=== PATIENT | female | born 1970 | race African-American/Black ===

== ENCOUNTER 2017-11-05 12:26 | Emergency (ER) | payer OTHER ==
[2017-11-05] MEDS: ONDANSETRON PF 4 MG/2 ML VIAL. IV (13:15)
[2017-11-05] MEDS ORDERED: MORPHINE SULFATE 4 MG/ML DISP.SYRIN. IV/SQ (13:15)
[2017-11-05 13:16] LABS: URINE HCG POC HCG NEGATIVE (Negative)
[2017-11-05 13:33] LABS: ADD MAN DIFF? NO
[2017-11-05 13:37] LABS: BASO % 1 % (0-3); EOS # 0.1 x10^3/uL (0.0-0.7); EOS % 2 % (0-3); HEMATOCRIT 30.7 % (36.0-47.0); LYMPH # 2.2 x10^3/uL (1.0-4.8); LYMPH % 32 % (24-48); MEAN CORPUSCULAR HEMOGLOBIN 27 pg (25-35); MEAN CORPUSCULAR HGB CONC 33 g/dL (31-37); MEAN CORPUSCULAR VOLUME 81 fL (79-100); MONO # 0.5 x10^3/uL (0.0-1.1); MONO % 8 % (0-9); NEUT # 3.9 x10^3uL (1.8-7.7); NEUT % 58 % (31-73); PLATELET COUNT 310 x10^3/uL (140-400); RED BLOOD COUNT 3.77 x10^6/uL (3.50-5.40); RED CELL DISTRIBUTION WIDTH 19.5 % (11.5-14.5); WHITE BLOOD COUNT 6.8 x10^3/uL (4.0-11.0)
[2017-11-05] MEDS: IV RINGERS,LACTATED 1000ML 1,000 ML IV (13:37)
[2017-11-05 13:44] LABS: INR 1.1 (0.8-1.1); PARTIAL THROMBOPLASTIN TIME 27 SEC (24-38); PROTHROMBIN TIME PATIENT 13.3 SEC (11.7-14.0)
[2017-11-05 13:51] LABS: BILIRUBIN,URINE NEGATIVE (NEG); CLARITY,URINE CLEAR; COLOR,URINE YELLOW; GLUCOSE,URINE NEGATIVE (NEG); NITRITE,URINE NEGATIVE (NEG); PROTEIN,URINE NEGATIVE (NEG-TRACE); UROBILINOGEN,URINE 0.2 mg/dL (0.2 mg/dL)
[2017-11-05 13:59] LABS: ANION GAP 7 (6-14); BLOOD UREA NITROGEN 17 mg/dL (7-20); CALCIUM 8.8 mg/dL (8.5-10.1); CARBON DIOXIDE 26 mmol/L (21-32); CHLORIDE 107 mmol/L (98-107); GFR 72.2; GLUCOSE 96 mg/dL (70-99); POTASSIUM 3.8 mmol/L (3.5-5.1); SODIUM 140 mmol/L (136-145)
[2017-11-05 14:00] LABS: BACTERIA,URINE MODERATE /HPF (0-FEW); RBC,URINE 0 /HPF (0-2); SQUAMOUS EPITHELIAL CELL,UR MANY /LPF
[2017-11-05 14:01] LABS: BARBITURATES NEG (NEG); BENZODIAZEPINES NEG (NEG); CANNABINOIDS NEG (NEG); COCAINE NEG (NEG); METHADONE NEG (NEG); OPIATES NEG (NEG); PHENCYCLIDINE NEG (NEG)
[2017-11-05 14:06] LABS: ALBUMIN 3.6 g/dL (3.4-5.0); ALK PHOS 68 U/L (46-116); ALT (SGPT) 22 U/L (14-59); AMPHETAMINE/METHAMPHETAMINE NEG (NEG); AST (SGOT) 18 U/L (15-37); CKMB MASS < 0.5 ng/mL (0.0-3.6); CREATINE KINASE 155 U/L (26-192); DIRECT BILIRUBIN 0.2 mg/dL (0.0-0.2); ETHANOL, URINE NEG (NEG); LIPASE 104 U/L (73-393); TOTAL BILIRUBIN 0.9 mg/dL (0.2-1.0); TOTAL PROTEIN 8.4 g/dL (6.4-8.2)
[2017-11-05 14:11] LABS: LACTIC ACID 1.2 mmol/L (0.4-2.0)
[2017-11-05] MEDS ORDERED: CONTRAST GIVEN MC (15:00)
[2017-11-05] MEDS: IOHEXOL 300 MG/ML 100ML VIAL. IV (15:03)
[2017-11-05] MEDS: KETOROLAC 30 MG/ML INJ. IV (15:34)
== END 2017-11-05 17:23 | disposition home or self-care (01) ==
LOC: ER 12:26
DX: R10.32 Left lower quadrant pain (principal); N83.202 Unspecified ovarian cyst, left side; Z98.51 Tubal ligation status
CPT/HCPCS: 36415; 72170; 74177; 76830; 76856; 80048; 80076; 80307; 81001; 81025; 82553; 83605; 83690; 85025; 85610; 85730; 87086; 96361; 96374; 99285-25; J1885; J7120; Q9967

== ENCOUNTER 2018-12-25 19:32 | Emergency (ER) | payer OTHER ==
[~2018-12-25] VITALS: Ht 157.5 cm; Wt 78.5 kg
[2018-12-25 21:31] VITALS: BP 132/76
[2018-12-25] MEDS ORDERED: BUTALB/APAP/CAFEIN 50/325/40MG TABLET. PO ONE (21:45)
[2018-12-25] MEDS ORDERED: BUTA1TAB23 PO (22:04)
--- NOTE | 2018-12-25 22:04 | PHYS DOC ---
Past Medical History Past Medical History: Anxiety, Hypothyroid Past Surgical History: Tubal ligation Alcohol Use: None Drug Use: None Adult General Chief Complaint Chief Complaint: DIZZY/LIGHT HEADED HPI HPI Patient is a 48 year old [f__sex] who presents with [] Review of Systems Review of Systems Constitutional: Denies fever or chills [] Eyes: Denies change in visual acuity, redness, or eye pain [] HENT: Denies nasal congestion or sore throat [] Respiratory: Denies cough or shortness of breath [] Cardiovascular: No additional information not addressed in HPI [] GI: Denies abdominal pain, nausea, vomiting, bloody stools or diarrhea [] : Denies dysuria or hematuria [] Musculoskeletal: Denies back pain or joint pain [] Integument: Denies rash or skin lesions [] Neurologic: Denies headache, focal weakness or sensory changes [] Endocrine: Denies polyuria or polydipsia [] All other systems were reviewed and found to be within normal limits, except as documented in this note. Current Medications Current Medications Current Medications Medications (Trade) Dose Ordered Sig/Hussain Start Time Stop Time Status Last Admin Dose Admin Acetaminophen/ Butalbital/ Caffeine (Fioricet) 1 tab 1X ONCE 12/25/18 21:45 12/25/18 21:46 DC 12/25/18 21:48 1 TAB Allergies Allergies Allergies Coded Allergies Type Severity Reaction Last Updated Verified No Known Drug Allergies 11/05/17 No Physical Exam Physical Exam Constitutional: Well developed, well nourished, no acute distress, non-toxic appearance. [] HENT: Normocephalic, atraumatic, bilateral external ears normal, oropharynx moist, no oral exudates, nose normal. [] Eyes: PERRLA, EOMI, conjunctiva normal, no discharge. [] Neck: Normal range of motion, no tenderness, supple, no stridor. [] Cardiovascular:Heart rate regular rhythm, no murmur [] Lungs & Thorax: Bilateral breath sounds clear to auscultation [] Abdomen: Bowel sounds normal, soft, no tenderness, no masses, no pulsatile masses. [] Skin: Warm, dry, no erythema, no rash. [] Back: No tenderness, no CVA tenderness. [] Extremities: No tenderness, no cyanosis, no clubbing, ROM intact, no edema. [] Neurologic: Alert and oriented X 3, normal motor function, normal sensory function, no focal deficits noted. [] Psychologic: Affect normal, judgement normal, mood normal. [] Current Patient Data Vital Signs Vital Signs Date Time Temp Pulse Resp B/P (MAP) Pulse Ox O2 Delivery O2 Flow Rate FiO2 12/25/18 21:31 54 18 99 12/25/18 19:35 98.1 168/87 (114) Room Air 98.1 EKG EKG [] Radiology/Procedures Radiology/Procedures [] Course & Med Decision Making Course & Med Decision Making Pertinent Labs and Imaging studies reviewed. (See chart for details) [] Dragon Disclaimer Dragon Disclaimer This electronic medical record was generated, in whole or in part, using a voice recognition dictation system. Departure Departure Impression: Primary Impression: Dizziness Additional Impression: Medication adverse effect Disposition: 01 HOME, SELF-CARE Condition: STABLE Referrals: Bebe MOSHER MD (PCP) Patient Instructions: Dizziness, [id number], Drug Reaction, GI Intolerance Scripts Butalb/Acetaminophen/Caffeine ([id number] 50-325-40) 1 Each Tablet 1 EACH PO Q6HRS PRN for HEADACHE, #14 TAB Prov: AUTUMN SILVEIRA DO 12/25/18 Problem Qualifiers Additional Impression: Medication adverse effect Encounter type: initial encounter Qualified Codes: T50.905A - Adverse effect of unspecified drugs, medicaments and biological substances, initial encounter AUTUMN SILVEIRA DO Dec 25, 2018 22:04
== END 2018-12-25 22:10 | disposition home or self-care (01) ==
LOC: ER 19:32
DX: R42 Dizziness and giddiness (principal); T38.0X5A Adverse effect of glucocorticoids and synthetic analogues, initial encounter; E03.9 Hypothyroidism, unspecified; F41.9 Anxiety disorder, unspecified; Y92.89 Other specified places as the place of occurrence of the external cause
CPT/HCPCS: 99283

== ENCOUNTER 2019-04-06 06:53 | Inpatient (IN) | payer OTHER ==
[2019-04-06] VITALS (11 sets, daily range): BP systolic 116–155; BP diastolic 60–92
[~2019-04-06] VITALS: Ht 160 cm; Wt 80.7 kg
[~2019-04-06 06:53] MED LIST: ACET-704 PO; BUTA1TAB23 PO; IBUP-1027 PO; LEVO150T5 PO
[2019-04-06] MEDS ORDERED: fentaNYL PF VIAL 100 MCG/2 ML VIAL IV PRN ×2 (07:00→12:00)
[2019-04-06] MEDS ORDERED: MORPHINE SULFATE 2 MG/ML VIAL. IV PRN ×2 (07:00→12:00)
[2019-04-06] MEDS ORDERED: LIDOCAINE 1% PF 2 ML VIAL. ID PRN (07:00)
[2019-04-06] MEDS ORDERED: ONDANSETRON PF 4 MG/2 ML VIAL. IV PRN ×2 (07:00→12:00)
[2019-04-06] MEDS ORDERED: IV RINGERS,LACTATED 1000ML 1,000 ML IV SCH (07:00)
[2019-04-06] MEDS ORDERED: PROCHLORPERAZINE 10 MG/2 ML VIAL. IV PRN (07:00)
[2019-04-06] MEDS ORDERED: ceFAZolin 2GM PREMIX 2 GM/50 ML BAG IV ONE (08:00)
[2019-04-06] MEDS ORDERED: SEVOFLURANE 61 TO 120 MINUTES. IH ONE (08:08)
[2019-04-06] MEDS ORDERED: fentaNYL PF VIAL 100 MCG/2 ML VIAL ONE ×4 (08:08→11:41)
[2019-04-06] MEDS ORDERED: KETOROLAC 30 MG/ML INJ FOR OR. INJ ONE (08:09)
[2019-04-06] MEDS ORDERED: DEXAMETHASONE SOD PHOS 4 MG/ML VIAL ONE (08:09)
[2019-04-06] MEDS ORDERED: ONDANSETRON PF 4 MG/2 ML VIAL. ONE (08:09)
[2019-04-06] MEDS ORDERED: LIDOCAINE 2% PF 5 ML VIAL. ONE (08:09)
[2019-04-06] MEDS ORDERED: PROPOFOL 20 ML IV ONE (08:09)
[2019-04-06] MEDS ORDERED: MIDAZOLAM HCL/PF 2 MG/2 ML VIAL. ONE (08:09)
[2019-04-06] MEDS: fentaNYL PF VIAL 100 MCG/2 ML VIAL IV PRN ×2 (11:49→11:56)
[2019-04-06] MEDS ORDERED: HYDROcodone/APAP 7.5/325MG 1 TAB TABLET PO PRN (12:00)
[2019-04-06] MEDS ORDERED: POLYETHYLENE GLYCOL 3350 17 GM PACKET. PO PRN (12:00)
[2019-04-06] MEDS ORDERED: MORPHINE SULFATE 4 MG/ML VIAL. IV PRN (12:00)
[2019-04-06] MEDS ORDERED: DEXTROSE 50% 25 GM / 50ML DISP.SYRIN. IV PRN (12:00)
--- NOTE | 2019-04-06 12:23 | PDOC4 ---
Operative Note Operative Note Date of surgery: 04/06/2019 Preoperative diagnosis: Displaced right trimalleolar ankle fracture Postoperative diagnosis: Same Operative procedure: Operative reduction internal fixation right trimalleolar ankle fracture Surgeon: Angel Assist: first mainor Cason Anesthesia: Gen. Estimated blood loss: 25 mL Complications: None Operative indications: Patient is a 49-year-old female injured in [facility] about a week ago where she underwent closed reduction of a trimalleolar ankle fracture dislocation and was splinted and presented to my clinic yesterday. I had gone over with her the anatomy detailed the injuries and the need for fixation of her fractures. I went over with her the possibility of infection nerve or blood vessel damage medical or other anesthetic complications among others. We had covered the possibility that even under the best of circumstances that she could have some stiffness continued pain premature arthritis. She wishes to proceed with surgical evaluation and treatment Operative text: Patient was identified procedure verified patient placed in the supine position on the operating table. After adequate amounts of general anesthesia were administered the right lower extremity was prepped and draped in sterile standard fashion with a thigh tourniquet. After timeout was performed patient procedure identified and verified the right lower extremity was exsanguinated by Esmarch bandage tourniquet inflated to 300 mmHg and I elected to proceed first with traction to reduce the posterior malleolar fragment. Guidewires were placed from anterior to posterior across the posterior malleolar fragment and appropriate sized 4.0 cannulated screws from the Dimple ALPS set were used and excellent reduction obtained. A curvilinear incision was made over the medial malleolus subperiosteal dissection carried out anatomic reduction and a 40 cannulated screw was placed with anatomic reduction excellent fixation of the medial malleolar fragment. Lateral incision was made subperiosteal dissection was carried out and a 6-hole distal fibular locking plate was placed under fluoroscopic guidance with fracture reduced anatomically. A shaft screw was used for positioning and distal locking screws were placed under fluoroscopic guidance the remainder of the 3.5 shaft screws likewise obtained excellent fixation anatomic alignment of the ankle joint mortise distal fibula medial and posterior malleolar fragments was noted under multiple fluoroscopic guidance as well as placement of hardware. Thorough irrigation carried out normal saline solution subcutaneous closure with buried Vicryl suture skin closure with brenda and a nylon suture in her anterior incision with a near far far near configuration to relieve tension over this skin. A well-padded posterior splint was then placed toes were noted be warm pink following deflation of tourniquet after a total tourniquet time slightly in excess of 1 hour patient was returned recovery room in stable condition having tolerated procedure well HARPREET AGUILA MD Apr 06, 2019 12:23
[2019-04-06] MEDS ORDERED: HYDROmorphone 2 MG/ML VIAL ONE (12:40)
[2019-04-06] MEDS: HYDROmorphone 2 MG/ML VIAL IV PRN ×2 (12:44→13:20)
[2019-04-06] MEDS: HYDROcodone/APAP 7.5/325MG 1 TAB TABLET PO PRN ×3 (15:25→21:25)
[2019-04-06] MEDS ORDERED: ZOLPIDEM 5 MG TABLET. PO PRN (17:45)
[2019-04-06] MEDS: oxyCODONE IR 5 MG TABLET PO PRN ×2 (19:51→22:59)
[2019-04-07] MEDS: HYDROcodone/APAP 7.5/325MG 1 TAB TABLET PO PRN ×2 (02:34→06:25)
[2019-04-07 03:00] VITALS: BP 103/60
[2019-04-07] MEDS: oxyCODONE IR 5 MG TABLET PO PRN ×3 (04:38→12:44)
[2019-04-07] MEDS ORDERED: MAGNESIUM HYDROXIDE 2,400 MG/30 ML ORAL.SUSP. PO PRN (06:00)
[2019-04-07 07:00] VITALS: BP 111/72
--- NOTE | 2019-04-07 07:53 | PDOC ---
PROGRESS NOTES Subjective Subjective Problems overnight: Pain better controlled than yesterday resting comfortably in bed with right leg elevated Objective Vital Signs Vital Signs Date Time Temp Pulse Resp B/P (MAP) Pulse Ox O2 Delivery O2 Flow Rate FiO2 04/07/19 07:25 Room Air 04/07/19 06:25 20 04/07/19 03:00 98.7 70 103/60 (74) 98 3.0 98.7 Physical Exam Splint and dressings clean dry intact wiggles toes distal neurovascular status intact Labs Laboratory Tests Test 04/06/19 07:16 Bedside Urine HCG, Qualitative Hcg negative (Negative) Imaging Intraoperative films show anatomic reduction of the trimalleolar ankle fracture Assessment Assessment POD# [1], S/P [ORIF right trimalleolar ankle fracture] Plan Plan of Care Plan on discharge home today after mobilization with physical therapy Continue elevate and ice keep dressing clean and dry HARPREET AGUILA MD Apr 07, 2019 07:53
[2019-04-07] MEDS ORDERED: OXYC1TAB19 PO (07:54)
--- NOTE | 2019-04-07 07:55 | DISCH ---
DISCHARGE INSTRUCTIONS Condition on Discharge Condition on Discharge: Stable Activity After Discharge Activity Instructions for Disc: Other, see below (May ambulate nonweightbearing with crutches, encourage elevation and ice of right lower extremity when not ambulatory) Weight Bearing Status after Di: Non weight bearing Diet after Discharge Diet after Discharge: Regular Wound Incision Care Wound/Incision Care: Do not change dressing Contacting the after DC Call your doctor for: Concerns you may have Follow-Up Follow up with: Dr. Ortiz 10-14 days Treatment/Equipment after DC Adaptive Equipment Issued: HARPREET Etienne MD Apr 07, 2019 07:55
[2019-04-07] MEDS ORDERED: SENNOSIDES/DOCUSATE 8.6/50MG TABLET. PO SCH (09:00)
--- NOTE | 2019-04-07 10:08 | NUR ---
SS following for discharge planning. SS reviewed pt chart. Pt is from home and is currently on room air. No discharge needs noted at this time. SS will continue to follow for discharge planning.
[2019-04-07 11:00] VITALS: BP 126/80
--- NOTE | 2019-04-07 14:43 | NUR ---
Wound Care Pt seen for wound consult re: R elbow wound. Area is scabbed and healed, WC will sign off. No other wounds noted.
--- NOTE | 2019-04-07 15:26 | NUR ---
Pt discharged home with self care. Discharge instructions and prescriptions discussed. Pt verbalized understanding. IV removed earlier per pt request. Belongings were taken to the pt car. Assisted pt to wheelchair. She was taken to Outpt entrance and secured in car.
[2019-04-07] MEDS ORDERED: BISACODYL 10 MG SUPP.RECT. PR PRN (16:00)
== END 2019-04-07 15:15 | disposition home or self-care (01) | DRG 494 ==
LOC: SURG 06:53 → 4 NORTH 13:00
PROVIDERS: ADMIT Orthopaedic Surgery; ATTEND Orthopaedic Surgery
PROC: 0QSG04Z Reposition Right Tibia with Internal Fixation Device, Open Approach (ICD-10-PCS; 2019-04-06)
PROC: 0QSJ04Z Reposition Right Fibula with Internal Fixation Device, Open Approach (ICD-10-PCS; principal; 2019-04-06 09:00)
DX: S82.851A Displaced trimalleolar fracture of right lower leg, initial encounter for closed fracture (principal); F41.9 Anxiety disorder, unspecified; X58.XXXA Exposure to other specified factors, initial encounter; Y93.89 Activity, other specified; Y92.89 Other specified places as the place of occurrence of the external cause; Y99.8 Other external cause status; Z83.3 Family history of diabetes mellitus; Z79.899 Other long term (current) drug therapy; Z82.49 Family history of ischemic heart disease and other diseases of the circulatory system; Z98.51 Tubal ligation status
CPT/HCPCS: 76000; 81025; A7015; C1713; J0696; J1100; J1170; J1885; J2001; J2250; J2405; J2704; J3010; J7120; 97116; 97530; 97535

== ENCOUNTER → 2020-04-25 | Outpatient (CLI) | payer OTHER ==
[~2020-04-25] MED LIST changes: +OXYC1TAB19 PO
--- NOTE | 2020-04-25 07:45 | RAD ---
ABDOMEN COMPLETE Realtime grayscale images of the abdomen with color and pulsed doppler utilized as appropriate. History: Reason: NON INTRACTABLE VOMITING WITH NAUSEA / Spl. Instructions: / History: Comparison: None. Findings: The liver demonstrates slightly increased echogenicity. No intrahepatic biliary ductal dilatation or mass is seen. No gallstones, pericholecystic fluid, or gallbladder wall thickening are seen. The common bile duct is normal in diameter and measures 0.3 cm. Portal Vein flow is hepatopetal. The pancreas is normal in appearance, although the tail is not well visualized. The aorta and IVC are normal diameter where visualized. The right kidney is normal in appearance, measuring 9.3 cm in length. The left kidney is normal in appearance, measuring 10.3 cm in length. No hydronephrosis or perinephric fluid are seen bilaterally. The spleen measures 7.9 cm. Calcified splenic granulomas. Impression: No acute findings. Mild hepatic steatosis. Electronically signed by: Bhargav Light MD (04/25/2020 7:43 AM) [id number]
== END | disposition home or self-care (01) ==
LOC: US 06:50
PROVIDERS: ATTEND Family Medicine
DX: R11.2 Nausea with vomiting, unspecified (principal); D73.89 Other diseases of spleen; K76.0 Fatty (change of) liver, not elsewhere classified
CPT/HCPCS: 76700

== ENCOUNTER 2020-07-21 09:22 | Emergency (ER) | payer OTHER ==
[~2020-07-21] VITALS: Ht 157.5 cm; Wt 77.2 kg
--- NOTE | 2020-07-21 10:20 | PHYS DOC ---
Past Medical History Past Medical History: Anxiety, GERD, Hypothyroid, Other Additional Past Medical Histor: H. Pylori Past Surgical History: Tubal ligation Smoking Status: Never Smoker Alcohol Use: Occasionally Drug Use: None General Adult EDM: Chief Complaint: ABDOMINAL PAIN HPI: HPI: Patient is a 50 year old female who presented to ER today for evaluation of low abdominal pain associate with diarrhea since early this morning. Patient denies any fever. Patient states she made herself some hamburger last night, ate it. Her family member who ate a hamburger did not get sick. Patient denies being exposed to anybody who tested positive for COVID-19. Patient denies any blood in the urine or stool. Patient described the pain as cramping in nature. Review of Systems: Review of Systems: Constitutional: Denies fever or chills. [] Eyes: Denies change in visual acuity. [] HENT: Denies nasal congestion or sore throat. [] Respiratory: Denies cough or shortness of breath. [] Cardiovascular: Denies chest pain or edema. [] GI: Positive for abdominal pain, nausea, vomiting and diarrhea. [] : Denies dysuria. [] Musculoskeletal: Denies back pain or joint pain. [] Integument: Denies rash. [] Neurologic: Denies headache, focal weakness or sensory changes. [] Endocrine: Denies polyuria or polydipsia. [] Lymphatic: Denies swollen glands. [] Psychiatric: Denies depression or anxiety. [] Heart Score: Risk Factors: Risk Factors: DM, Current or recent (<one month) smoker, HTN, HLP, family history of CAD, obesity. Risk Scores: Score 0 - 3: 2.5% MACE over next 6 weeks - Discharge Home Score 4 - 6: 20.3% MACE over next 6 weeks - Admit for Clinical Observation Score 7 - 10: 72.7% MACE over next 6 weeks - Early Invasive Strategies Allergies: Allergies: Allergies Coded Allergies Type Severity Reaction Last Updated Verified No Known Drug Allergies 04/06/19 No Physical Exam: PE: Constitutional: Well developed, well nourished, no acute distress, non-toxic appearance. [] HENT: Normocephalic, atraumatic, bilateral external ears normal, oropharynx m oist, no oral exudates, nose normal. [] Eyes: PERRLA, EOMI, conjunctiva normal, no discharge. [] Neck: Normal range of motion, no tenderness, supple, no stridor. [] Cardiovascular:Heart rate regular rhythm, no murmur [] Lungs & Thorax: Bilateral breath sounds clear to auscultation [] Abdomen: Bowel sounds normal, soft, no tenderness, no masses, no pulsatile masses. [] Skin: Warm, dry, no erythema, no rash. [] Back: No tenderness, no CVA tenderness. [] Extremities: No tenderness, no cyanosis, no clubbing, ROM intact, no edema. [] Neurologic: Alert and oriented X 3, normal motor function, normal sensory function, no focal deficits noted. [] Psychologic: Affect normal, judgement normal, mood normal. [] Current Patient Data: Vital Signs: Vital Signs Date Time Temp Pulse Resp B/P (MAP) Pulse Ox O2 Delivery O2 Flow Rate FiO2 07/21/20 09:49 98.7 67 16 150/80 (103) 100 Room Air 98.7 EKG: EKG: [] Radiology/Procedures: Radiology/Procedures: [][facility] [address] [place] [address] IMAGING REPORT Signed PATIENT: CHADD ALTAMIRANO ACCOUNT: [id number] : 1970 LOCATION: ER AGE: 50 SEX: F EXAM STATUS: REG ER ORD. PHYSICIAN: NINA CARMONA DO REASON: lower abdominal pain PROCEDURE: CT ABD PELV W/ IV CONTRST ONLY EXAM: CT Abdomen and Pelvis with IV contrast INDICATION: Reason: lower abdominal pain / Spl. Instructions: INJ 75ML OMNI 300 / History: TECHNIQUE: Multi-detector row CT images were acquired from the lung bases through the abdomen and pelvis with the use of IV contrast. Sagittal and coronal images were acquired from the transaxial data. All CT scans performed at this facility utilize dose optimization techniques as appropriate to the exam, including the following: Automated exposure control and adjustment of the mA and/or KV according to patient size (this includes techniques or standardized protocols for targeted exams where dose is indication/reason for exam). IV CONTRAST: Administered ORAL CONTRAST: Not administered COMPARISON: 11/05/[address] FINDINGS: LOWER CHEST: Unremarkable LIVER: Unremarkable BILIARY SYSTEM: Gallbladder is unremarkable. Bile ducts are not dilated. PANCREAS: Unremarkable SPLEEN: Unremarkable ADRENALS: Unremarkable KIDNEYS & URETERS: Unremarkable BLADDER: Unremarkable REPRODUCTIVE ORGANS: Similar bulk to the uterus. New right adnexal 2.9 cm cyst GASTROINTESTINAL: Respiratory motion artifact degrades detailed assessment. There are no findings of bowel obstruction, acute inflammation or perforation. A few scattered colonic diverticuli are present. No findings of acute appendicitis.. MESENTERY/PERITONEUM/RETROPERITONEUM: Unremarkable VASCULAR: Engorged adnexal vessels bilaterally, right greater than left, compatible with pelvic congestion in the appropriate clinical context. LYMPH NODES: No adenopathy OSSEOUS & SOFT TISSUES: Unremarkable IMPRESSION: 1. Engorged adnexal vessels, compatible with pelvic congestion in the appropriate clinical context. 2. Bulky uterus with a new right adnexal cyst. These can be evaluated in further detail with ultrasound if clinically warranted. 3. Otherwise no findings to explain lower abdominal pain identified, with motion artifact degrading detail. Electronically signed by: Meeta Dickerson MD (07/21/2020 1:15 PM) [id number] DICTATED and SIGNED BY: MEETA DICKERSON MD DATE: 07/21/20 1315 Course & Med Decision Making: Course & Med Decision Making Pertinent Labs and Imaging studies reviewed. (See chart for details) Patient is a 50-year-old female who presented to ER today for evaluation of diarrhea and abdominal cramping after she ate some hamburger last night. Patient was given IV fluid medication in ER, she feels much better. Examination did not show any rebound tenderness or peritonitis signs. Patient will be discharged home, she will need follow-up with her family physician for further evaluation and treatment. Patient is amenable to plan of care Dragon Disclaimer: Dragon Disclaimer: This electronic medical record was generated, in whole or in part, using a voice recognition dictation system. Departure Departure Impression: Primary Impression: Gastroenteritis Disposition: 01 DC HOME SELF CARE/HOMELESS Condition: STABLE Referrals: Bebe MOSHER MD (PCP) follow up with your family doctor next week as needed Patient Instructions: Viral Gastroenteritis Additional Instructions: Thank you for visiting our Emergency Department. We appreciate you trusting us with your care. If any additional problems come up don't hesitate to return to visit us. Please follow up with your primary care provider so they can plan additional care if needed and know about the problem that you had. If symptoms worsen come back to the Emergency Department. Any concerning symptoms that start such as chest pain, shortness of air, weakness or numbness on one side of the body, running high fevers or any other concerning symptoms return to the ER. NINA CARMONA DO Jul 21, 2020 10:20
[2020-07-21 10:34] LABS: BILIRUBIN,URINE NEGATIVE (NEG); CLARITY,URINE CLEAR; COLOR,URINE YELLOW; NITRITE,URINE NEGATIVE (NEG); PROTEIN,URINE 30 mg/dL (NEG-TRACE)
[2020-07-21 10:38] LABS: BASO # 0.1 x10^3/uL (0.0-0.2); BASO % 1 % (0-3); EOS # 0.1 x10^3/uL (0.0-0.7); EOS % 1 % (0-3); HEMATOCRIT 29.2 % (36.0-47.0); HEMOGLOBIN 9.5 g/dL (12.0-15.5); LYMPH # 2.3 x10^3/uL (1.0-4.8); LYMPH % 23 % (24-48); MEAN CORPUSCULAR HEMOGLOBIN 25 pg (25-35); MEAN CORPUSCULAR HGB CONC 32 g/dL (31-37); MEAN CORPUSCULAR VOLUME 78 fL (79-100); MONO # 0.7 x10^3/uL (0.0-1.1); MONO % 7 % (0-9); NEUT % 69 % (31-73); PLATELET COUNT 351 x10^3/uL (140-400); RED BLOOD COUNT 3.73 x10^6/uL (3.50-5.40); RED CELL DISTRIBUTION WIDTH 19.8 % (11.5-14.5); WHITE BLOOD COUNT 10.2 x10^3/uL (4.0-11.0)
[2020-07-21 10:38] LABS: RBC,URINE OCC /HPF (0-2)
[2020-07-21 10:39] LABS: BACTERIA,URINE MANY /HPF (0-FEW)
[2020-07-21] MEDS ORDERED: KETOROLAC 30 MG/ML VIAL. IVP ONE (11:00)
[2020-07-21] MEDS ORDERED: IV NORMAL SALINE 1000ML BAG 1,000 ML IV ONE (11:00)
[2020-07-21] MEDS ORDERED: ONDANSETRON PF 4 MG/2 ML VIAL. IVP ONE (11:00)
[2020-07-21 11:43] LABS: CREATININE 0.9 mg/dL (0.6-1.0); GFR 80.5; POTASSIUM 3.3 mmol/L (3.5-5.1)
[2020-07-21 11:49] LABS: ALBUMIN 3.5 g/dL (3.4-5.0); ALBUMIN/GLOBULIN RATIO 0.9 (1.0-1.7); TOTAL BILIRUBIN 0.4 mg/dL (0.2-1.0); TOTAL PROTEIN 7.6 g/dL (6.4-8.2)
[2020-07-21] MEDS ORDERED: CONTRAST GIVEN. MC PRN (12:15)
[2020-07-21] MEDS ORDERED: IOHEXOL 300 MG/ML 100ML VIAL. IV ONE (12:15)
--- NOTE | 2020-07-21 13:18 | RAD ---
EXAM: CT Abdomen and Pelvis with IV contrast INDICATION: Reason: lower abdominal pain / Spl. Instructions: INJ 75ML OMNI 300 / History: TECHNIQUE: Multi-detector row CT images were acquired from the lung bases through the abdomen and pelvis with the use of IV contrast. Sagittal and coronal images were acquired from the transaxial data. All CT scans performed at this facility utilize dose optimization techniques as appropriate to the exam, including the following: Automated exposure control and adjustment of the mA and/or KV according to patient size (this includes techniques or standardized protocols for targeted exams where dose is indication/reason for exam). IV CONTRAST: Administered ORAL CONTRAST: Not administered COMPARISON: 11/05/[address] FINDINGS: LOWER CHEST: Unremarkable LIVER: Unremarkable BILIARY SYSTEM: Gallbladder is unremarkable. Bile ducts are not dilated. PANCREAS: Unremarkable SPLEEN: Unremarkable ADRENALS: Unremarkable KIDNEYS & URETERS: Unremarkable BLADDER: Unremarkable REPRODUCTIVE ORGANS: Similar bulk to the uterus. New right adnexal 2.9 cm cyst GASTROINTESTINAL: Respiratory motion artifact degrades detailed assessment. There are no findings of bowel obstruction, acute inflammation or perforation. A few scattered colonic diverticuli are present. No findings of acute appendicitis.. MESENTERY/PERITONEUM/RETROPERITONEUM: Unremarkable VASCULAR: Engorged adnexal vessels bilaterally, right greater than left, compatible with pelvic congestion in the appropriate clinical context. LYMPH NODES: No adenopathy OSSEOUS & SOFT TISSUES: Unremarkable IMPRESSION: 1. Engorged adnexal vessels, compatible with pelvic congestion in the appropriate clinical context. 2. Bulky uterus with a new right adnexal cyst. These can be evaluated in further detail with ultrasound if clinically warranted. 3. Otherwise no findings to explain lower abdominal pain identified, with motion artifact degrading detail. Electronically signed by: Verenice Dickerson MD (07/21/2020 1:15 PM) [id number]
[2020-07-21 15:21] VITALS: BP 129/71
== END 2020-07-21 15:34 | disposition home or self-care (01) ==
LOC: ER 09:22
DX: K52.9 Noninfective gastroenteritis and colitis, unspecified (principal); K21.9 Gastro-esophageal reflux disease without esophagitis; E03.9 Hypothyroidism, unspecified; Z98.51 Tubal ligation status
CPT/HCPCS: 36415; 74177; 80053; 81001; 81025; 83690; 85025; 87086; 96361; 96374; 96375; 99285; J1885; J2405; J7030; Q9967

== ENCOUNTER → 2020-08-21 | Outpatient (CLI) | payer OTHER ==
[~2020-08-21] VITALS: Ht 157.5 cm; Wt 78.5 kg
[~2020-08-21] MED LIST changes: +NORMAL SALINE IV ONE; +SINCALIDE IV ONE
--- NOTE | 2020-08-21 11:57 | RAD ---
EXAM: Nuclear hepatobiliary scan. HISTORY: Pain. TECHNIQUE: Following intravenous administration of 5.5 mCi Tc 99m Choletec, anterior images of the ab domen were obtained at five minute intervals through one hour. Subsequently, 1.56 mcg CCK was adminis tered and additional images to assess gallbladder ejection fraction were obtained. FINDINGS: There is prompt radiotracer uptake by the liver. No focal defect is seen. There is normal e xcretion into the biliary tree. The gallbladder is visualized within 5 minutes and there is free flow into the duodenum. The gallbladder ejection fraction is 31 percent. IMPRESSION: Normal radionuclide biliary scan. Electronically signed by: Lyubov Cotter MD (08/21/2020 11:54 AM) [id number]
== END ==
LOC: NM 07:55
PROVIDERS: ATTEND Internal Medicine Gastroenterology
DX: R10.13 Epigastric pain (principal); R11.2 Nausea with vomiting, unspecified
CPT/HCPCS: 78227; A9537; J2805

== ENCOUNTER → 2020-09-25 | Outpatient (CLI) | payer OTHER ==
[~2020-09-25] MED LIST changes: +MECL-75 PO; -NORMAL SALINE IV ONE; +OMEP20CA16 PO; +OXYC1TAB15 PO; -SINCALIDE IV ONE
== END ==
LOC: LAB 09:56
PROVIDERS: ATTEND Surgery
DX: Z01.812 Encounter for preprocedural laboratory examination (principal); K82.8 Other specified diseases of gallbladder; Z20.828 Contact with and (suspected) exposure to other viral communicable diseases
CPT/HCPCS: U0003

== ENCOUNTER 2020-09-28 07:20 | Day surgery (SDC) | payer OTHER ==
[~2020-09-28] VITALS: Ht 160 cm; Wt 77.5 kg
[~2020-09-28 07:20] MED LIST changes: +BUPIVACAINE-EPI 0.25% 30 ML VIAL KIT. ONE; +HYDROmorphone 2 MG/ML VIAL IV PRN; +IOHEXOL 300 MG/ML 50 ML VIAL. ONE; +IV RINGERS,LACTATED 1000ML 1,000 ML IV SCH; -MECL-75 PO; +ONDANSETRON PF 4 MG/2 ML VIAL. IV PRN; -OXYC1TAB15 PO; +SURGICEL HEMOSTAT 4X8 EACH. ONE; +fentaNYL PF VIAL 100 MCG/2 ML VIAL IV PRN
[2020-09-28] MEDS ORDERED: ceFAZolin SODIUM IV Push 1 GM VIAL. IVP PRN (08:00)
[2020-09-28] MEDS ORDERED: ACETAMINOPHEN 500 MG TABLET PO SCH (08:00)
[2020-09-28] MEDS ORDERED: ONDANSETRON PF 4 MG/2 ML VIAL. ONE (08:35)
[2020-09-28] MEDS ORDERED: ROCURONIUM 50 MG/5 ML VIAL. ONE (08:35)
[2020-09-28] MEDS ORDERED: MIDAZOLAM HCL/PF 2 MG/2 ML VIAL. ONE (08:35)
[2020-09-28] MEDS ORDERED: fentaNYL PF VIAL 250 MCG/5 ML VIAL ONE (08:36)
--- NOTE | 2020-09-28 08:45 | EKG ---
[facility] [address] [place] [address] Test Date: 2020-09-28 Test Time: 08:40:47 Pat Name: CHADD ALTAMIRANO Department: Room: Gender: F [employer] Teacher: RADHA : 1970 Requested By: NOELLE COLLADO Order Number: [id number] Reading MD: Measurements Intervals Parsons Rate: 62 P: 46 IL: 132 QRS: 55 QRSD: 72 T: 42 QT: 390 QTc: 398 Interpretive Statements SINUS RHYTHM NORMAL ECG RI6.02 No previous ECG available for comparison
[2020-09-28] MEDS ORDERED: SEVOFLURANE 61 TO 120 MINUTES. IH ONE (09:47)
[2020-09-28] MEDS ORDERED: KETOROLAC 30 MG/ML VIAL. ONE (09:47)
[2020-09-28] MEDS ORDERED: PROPOFOL 10 MG/ML (20ML) VIAL. IV ONE (09:47)
[2020-09-28] MEDS ORDERED: LIDOCAINE 2% PF 5 ML VIAL. ONE (09:47)
[2020-09-28] MEDS ORDERED: DEXAMETHASONE SOD PHOS 4 MG/ML VIAL ONE (09:48)
--- NOTE | 2020-09-28 09:48 | PDOC4 ---
Operative Note Operative Note Date: September 282020 at 09 45 Preoperative diagnosis: Biliary dyskinesia Postoperative diagnosis: Same Procedure: Laparoscopic cholecystectomy Surgeon: Lamonte Specimen: Gallbladder Dictation: Patient is 50-year-old female with right upper quadrant abdominal pain and HIDA scan showed ejection fraction of less than 30%. Procedure of laparoscopic cholecystectomy was explained to the patient detail risk benefits were also discussed including bleeding infection injury to intra-abdominal contents possible necessitating further or open operations alternatives to this procedure also discussed with the patient who seemed to understand and gave both verbal and written consent to have the procedure performed. Patient was taken to the operating room placed in the supine position general anesthesia was initiated once patient was sleeping intubated her abdomen was prepped and draped usual sterile fashion using ChloraPrep. An area just below the umbilicus was injected with quarter percent Marcaine with epinephrine incision was made 11 blade scalpel and a varies needle was placed within the abdomen creating pneumoperitoneum once this was complete a 11 mm port was placed and a 5 mm camera is placed within the abdomen which was inspected no other ab maladies were noted. A 5 mm port was placed in the epigastrium 5 mm port was placed in the right midabdomen and a 5 mm port was placed in the right lateral abdomen. The dome of the gallbladder is grasped retracted cephalad the infundibulum of the gallbladder is grasped retracted laterally exposing the triangle adherent tissues of the triangle were taken down with blunt dissection exposing the cystic duct and cystic artery both were doubly clipped and transected. The gallbladder was taken off the liver with hook electrocautery placed in Endo Catch bag removed from the umbilicus. Right upper quadrant is irrigated and suctioned dry hemostasis deemed to be appropriate and the pneumoperitoneum was reduced all ports were removed. The fascial defect at the umbilicus was closed with a [id number] 0 Vicryl suture and the skin was reapproximated all port sites for subcuticular Monocryl Mastisol Steri-Strips and island dressings were applied. Patient was awakened and extubated in the operating room taken to recovery in stable condition all sponge instrument needle counts listed as correct estimated blood loss 10 mL ODILIA PETERSEN MD Sep 28, 2020 09:47
[2020-09-28] MEDS ORDERED: fentaNYL PF VIAL 100 MCG/2 ML VIAL ONE (09:49)
--- NOTE | 2020-09-28 09:50 | DISCH ---
DISCHARGE INSTRUCTIONS Condition on Discharge Condition on Discharge: Stable Activity After Discharge Activity Instructions for Disc: Avoid exertion Other activity instructions: No lifting more than 20 pounds for 2 weeks Diet after Discharge Diet after Discharge: Low Fat Wound Incision Care Other wound/incision instructi: May shower in 24 hours Contacting the [facility] after DC Call your doctor for: If your condition worsens Follow-Up Follow up with: Dr. Aburto in 2 weeks Treatment/Equipment after DC Adaptive Equipment Issued: ODILIA Gramajo MD Sep 28, 2020 09:49
[2020-09-28] MEDS ORDERED: NEOSTIGMINE METHYLSULFATE 5 MG/5 ML SYRINGE. ONE (09:54)
[2020-09-28] MEDS ORDERED: GLYCOPYRROLATE 1 MG/5 ML VIAL. ONE (09:55)
[2020-09-28] MEDS: fentaNYL PF VIAL 100 MCG/2 ML VIAL IV PRN ×2 (10:17→10:26)
[2020-09-28] MEDS ORDERED: oxyCODONE/APAP 5/325 1 TAB TABLET PO ONE ×2 (10:30)
[2020-09-28] MEDS ORDERED: OXYC1TAB15 PO (10:33)
[2020-09-28] MEDS ORDERED: MORPHINE SULFATE 2 MG/ML VIAL. ONE (10:41)
[2020-09-28] MEDS: MORPHINE SULFATE 2 MG/ML VIAL. IV PRN ×2 (10:44→10:52)
[2020-09-28] MEDS: PROCHLORPERAZINE 10 MG/2 ML VIAL. IV PRN ×2 (11:05→12:00)
[2020-09-28 12:30] VITALS: BP 130/74
--- NOTE | 2020-10-03 16:10 | PATHOLOGY ---
[facility] Accession Number: [id number] . 01 Material submitted: . gallbladder - GALLBLADDER AND CONTENTS . 01 Clinical history: . BILIARY DYSKINESIA . 02 Diagnosis: Gallbladder, laparoscopic cholecystectomy: - Chronic cholecystitis. (JPM:zack; 10/03/2020) QMS 10/03/2020 1232 Local . 02 Comment: There are no calculi identified within the gallbladder lumen or specimen container. There is no evidence of malignancy. (JPM:zack; 10/03/2020) . 02 Electronically signed: . Tay Vaughan MD, Pathologist NPI- [id number] . 01 Gross description: . Received in formalin labeled "Katie Mccullough, gallbladder and contents" is intact cholecystectomy specimen measuring 7.4 x 2.8 x 2.2 cm. The serosa is smooth, fernandez-green and glistening with a roughened hepatic bed. The specimen is opened to reveal velvety, brown-green mucosa without polyps or masses. The average wall thickness is 0.2 cm. There are no calculi or possible lymph nodes grossly identified. Psych Coordinator sections of the fundus and body and the cystic duct margin are submitted in A1. ([facility]; 09/30/2020) GZA/GZA 10/03/2020 1231 Local . 02 Pathologist provided ICD-10: K81.1 . 02 CPT . 486347 Specimen Comment: A courtesy copy of this report has been sent to [phone], [phone] Specimen Comment: [id number] Specimen Comment: Report sent to / DR MOSHER Performed at: 01 [facility] [address], [place], [place] [id number] MD Arley Mccray MD Phone: [phone] Performed at: [address] [id number] MD Tay Vaughan MD Phone: [phone]
== END 2020-09-28 12:50 | disposition home or self-care (01) ==
LOC: SURG 07:20
PROVIDERS: ATTEND Surgery
DX: K82.8 Other specified diseases of gallbladder (principal); E03.9 Hypothyroidism, unspecified; E66.9 Obesity, unspecified; Z98.51 Tubal ligation status; Z98.890 Other specified postprocedural states; Z79.899 Other long term (current) drug therapy; Z68.30 Body mass index [BMI] 30.0-30.9, adult; Z72.89 Other problems related to lifestyle
CPT/HCPCS: 47562; 81025; 93005; J0690; J0780; J1100; J1885; J2250; J2270; J2405; J2704; J2710; J3010; J3490; Q9967

== ENCOUNTER 2021-02-02 09:22 | Emergency (ER) | payer OTHER ==
[~2021-02-02] VITALS: Ht 157.5 cm; Wt 78.2 kg
[~2021-02-02 09:22] MED LIST changes: -BUPIVACAINE-EPI 0.25% 30 ML VIAL KIT. ONE; -HYDROmorphone 2 MG/ML VIAL IV PRN; -IOHEXOL 300 MG/ML 50 ML VIAL. ONE; -IV RINGERS,LACTATED 1000ML 1,000 ML IV SCH; -ONDANSETRON PF 4 MG/2 ML VIAL. IV PRN; +OXYC1TAB15 PO; -SURGICEL HEMOSTAT 4X8 EACH. ONE; -fentaNYL PF VIAL 100 MCG/2 ML VIAL IV PRN
[2021-02-02] MEDS: diphenhydrAMINE 50 MG/ML VIAL IVP ONE (09:58)
[2021-02-02] MEDS: METOCLOPRAMIDE HCL 10 MG/2 ML VIAL. IVP ONE (09:58)
[2021-02-02] MEDS: IV NORMAL SALINE 1000ML BAG 1,000 ML IV ONE (09:58)
[2021-02-02 10:11] LABS: BASO # 0.1 x10^3/uL (0.0-0.2); BASO % 1 % (0-3); EOS # 0.3 x10^3/uL (0.0-0.7); EOS % 3 % (0-3); HEMATOCRIT 28.2 % (36.0-47.0); HEMOGLOBIN 9.3 g/dL (12.0-15.5); LYMPH # 2.2 x10^3/uL (1.0-4.8); LYMPH % 22 % (24-48); MEAN CORPUSCULAR HEMOGLOBIN 25 pg (25-35); MEAN CORPUSCULAR HGB CONC 33 g/dL (31-37); MEAN CORPUSCULAR VOLUME 75 fL (79-100); MONO # 0.8 x10^3/uL (0.0-1.1); MONO % 9 % (0-9); NEUT # 6.5 x10^3/uL (1.8-7.7); NEUT % 66 % (31-73); PLATELET COUNT 303 x10^3/uL (140-400); RED BLOOD COUNT 3.77 x10^6/uL (3.50-5.40); RED CELL DISTRIBUTION WIDTH 18.9 % (11.5-14.5); WHITE BLOOD COUNT 9.8 x10^3/uL (4.0-11.0)
[2021-02-02 10:20] LABS: CALCIUM 8.6 mg/dL (8.5-10.1); GFR 71.3; POTASSIUM 3.7 mmol/L (3.5-5.1)
[2021-02-02 10:24] LABS: PREG TEST PT QUAL NEGATIVE (NEG)
[2021-02-02 10:26] LABS: ALBUMIN 3.7 g/dL (3.4-5.0); TOTAL PROTEIN 8.3 g/dL (6.4-8.2)
[2021-02-02 10:27] LABS: ALBUMIN/GLOBULIN RATIO 0.8 (1.0-1.7); TOTAL BILIRUBIN 0.6 mg/dL (0.2-1.0)
--- NOTE | 2021-02-02 10:50 | ED.ADGEN ---
Past Medical History Past Medical History: Hypothyroid Additional Past Medical Histor: H. Pylori Past Surgical History: Tubal ligation Smoking Status: Never Smoker Alcohol Use: Rarely Drug Use: None General Adult EDM: Chief Complaint: Congestion HPI: HPI: Patient is a 50 year old AA female who presents emergency department with complaints of sudden onset of dizziness this morning with position changes. Patient reports for the last 3 days she has had severe sinus congestion and pressure. She denies any fever, cough, shortness of breath, abdominal pain, nausea, vomiting, diarrhea, abdominal pain, chest pain, palpitations, numbness, tingling, weakness, body aches, sore throat, or rash. Patient states she took Mucinex at 6:00 this morning for relief of the congestion. Patient reports increase in the dizziness she cannot walk straight. She consistently is walking to the right. She denies any difficulty speaking, swallowing, or slurring of her words. She complains of a headache that she describes as frontal and constant throbbing. She currently rates her pain a 4 out of 10 on the pain scale, she denies any alleviating factors. Patient reports a history of vertigo in the past that lasted for about 6 weeks. She states that this dizziness is similar to the vertigo that she had previously experienced but not as severe. Review of Systems: Review of Systems: Complete ROS is negative unless otherwise noted in HPI. Current Medications: Current Medications Medications (Trade) Dose Ordered Sig/Hussain Start Time Stop Time Status Last Admin Dose Admin Diphenhydramine HCl (Benadryl) 25 mg 1X ONCE 02/02/21 09:45 02/02/21 09:52 DC 02/02/21 09:58 25 MG Iohexol (Omnipaque 300 Mg/ml) 75 ml 1X ONCE 02/02/21 10:30 02/02/21 10:34 DC 02/02/21 11:05 75 ML Meclizine HCl (Antivert) 25 mg 1X ONCE 02/02/21 11:45 02/02/21 11:46 DC 02/02/21 11:50 25 MG Metoclopramide HCl (Reglan Vial) 10 mg 1X ONCE 02/02/21 09:45 02/02/21 09:52 DC 02/02/21 09:58 10 MG Sodium Chloride 1,000 ml @ 1,000 mls/hr 1X ONCE 02/02/21 09:45 02/02/21 10:44 DC 02/02/21 09:58 1,000 MLS/HR Allergies: Allergies: Allergies Coded Allergies Type Severity Reaction Last Updated Verified No Known Drug Allergies 09/28/20 No Physical Exam: PE: See Above Constitutional: Well developed, well nourished, no acute distress, non-toxic appearance. [] HENT: Normocephalic, atraumatic, bilateral external ears normal, nose normal. [] Eyes: PERRLA, EOMI, conjunctiva normal, no discharge. [] Neck: Normal range of motion, no stridor. [] Cardiovascular:Heart rate regular rhythm Lungs & Thorax: Respirations even and unlabored, no retractions, no respiratory distress Abdomen: soft, no tenderness Skin: Warm, dry, no erythema, no rash. [] Extremities: No cyanosis, ROM intact, no edema. [] Neurologic: Alert and oriented X 3, normal motor, normal sensory, no focal deficits noted; HINTs exam: head impulse positive, right horizontal nystagmus, no skew ] Psychologic: Affect normal, judgement normal, mood normal. [] Current Patient Data: Labs: Laboratory Tests Test 02/02/21 09:55 White Blood Count 9.8 x10^3/uL (4.0-11.0) Red Blood Count 3.77 x10^6/uL (3.50-5.40) Hemoglobin 9.3 g/dL (12.0-15.5) L Hematocrit 28.2 % (36.0-47.0) L Mean Corpuscular Volume 75 fL (79-100) L Mean Corpuscular Hemoglobin 25 pg (25-35) Mean Corpuscular Hemoglobin Concent 33 g/dL (31-37) Red Cell Distribution Width 18.9 % (11.5-14.5) H Platelet Count 303 x10^3/uL (140-400) Neutrophils (%) (Auto) 66 % (31-73) Lymphocytes (%) (Auto) 22 % (24-48) L Monocytes (%) (Auto) 9 % (0-9) Eosinophils (%) (Auto) 3 % (0-3) Basophils (%) (Auto) 1 % (0-3) Neutrophils # (Auto) 6.5 x10^3/uL (1.8-7.7) Lymphocytes # (Auto) 2.2 x10^3/uL (1.0-4.8) Monocytes # (Auto) 0.8 x10^3/uL (0.0-1.1) Eosinophils # (Auto) 0.3 x10^3/uL (0.0-0.7) Basophils # (Auto) 0.1 x10^3/uL (0.0-0.2) Sodium Level 139 mmol/L (136-145) Potassium Level 3.7 mmol/L (3.5-5.1) Chloride Level 104 mmol/L (98-107) Carbon Dioxide Level 24 mmol/L (21-32) Anion Gap 11 (6-14) Blood Urea Nitrogen 9 mg/dL (7-20) Creatinine 1.0 mg/dL (0.6-1.0) Estimated GFR (Cockcroft-Gault) 71.3 BUN/Creatinine Ratio 9 (6-20) Glucose Level 90 mg/dL (70-99) Calcium Level 8.6 mg/dL (8.5-10.1) Total Bilirubin 0.6 mg/dL (0.2-1.0) Aspartate Amino Transferase (AST) 36 U/L (15-37) Alanine Aminotransferase (ALT) 31 U/L (14-59) Alkaline Phosphatase 111 U/L (46-116) Total Protein 8.3 g/dL (6.4-8.2) H Albumin 3.7 g/dL (3.4-5.0) Albumin/Globulin Ratio 0.8 (1.0-1.7) L Serum Test, Qualitative Negative (NEG) Laboratory Tests 02/02/21 09:55 Laboratory Tests 02/02/21 09:55 Vital Signs: Vital Signs Date Time Temp Pulse Resp B/P (MAP) Pulse Ox O2 Delivery O2 Flow Rate FiO2 02/02/21 13:46 62 15 135/78 (97) 98 Room Air 02/02/21 09:40 98.3 98.3 EKG: EKG: [] Heart Score: C/O Chest Pain: No Risk Scores: Score 0 - 3: 2.5% MACE over next 6 weeks - Discharge Home Score 4 - 6: 20.3% MACE over next 6 weeks - Admit for Clinical Observation Score 7 - 10: 72.7% MACE over next 6 weeks - Early Invasive Strategies Radiology/Procedures: Radiology/Procedures: PROCEDURE: CT ANGIOGRAPHY HEAD AND NECK EXAM: CT HEAD/BRAIN WO, CTA HEAD AND NECK W/WO CONTRAST DATE: 02/02/2021 10:26 AM INDICATION: dizziness TECHNIQUE: 5 mm axial tomographic images were obtained through the head before contrast. CTA angiogram of the head and neck was obtained after IV bolus administration of 75 cc of Omnipaque 300. The images were sent to workstation and multiplanar reconstructions were obtained. Multiplanar reconstruction images to include MIP and 3-D reconstruction images are submitted. One or more of the following dose reduction techniques were utilized: Automated exposure control (AEC), Adjustment of mA and/or kV according to patient size, Use of iterative reconstruction technique such as ASiR, CT scan done according to ALARA and image gently/image wisely COMPARISON: None. FINDINGS: Noncontrast CT: The brain parenchyma is normal in attenuation. No intra- or extra-axial mass or fluid collection. No hyperdense intracranial hemorrhage. The ventricles are normal in size and configuration without midline shift. There is normal salas- white matter differentiation. The subarachnoid cisterns are patent. The visualized paranasal sinuses are well aerated. The mastoid air cells are clear. The visualized portions of the orbits are normal. No aggressive osseous lesion or fracture. CTA Head: The visualized distal internal carotid arteries, anterior and middle cerebral arteries are patent and normal caliber. The distal vertebral arteries, basilar artery, and posterior cerebral arteries are patent and normal caliber. No aneurysm or arteriovenous malformation is seen. CTA Neck: Right carotid: The right common carotid artery is patent and normal caliber. The carotid bifurcation is normal. No stenosis of the right internal carotid artery per NASCET criteria. The right external carotid artery is patent. Left carotid: The left common carotid artery is patent and normal caliber. The carotid bifurcation is normal. No stenosis of the left internal carotid artery per NASCET criteria. The left external carotid artery is patent. Right vertebral: The right vertebral artery is patent and normal caliber. Left vertebral: The left vertebral artery is patent and normal caliber. The visualized portions of the aortic arch are normal. The origins of the brachiocephalic and subclavian arteries are normal. No cervical lymphadenopathy. The thyroid gland is normal. The parotid and submandibular glands are normal. The visualized aerodigestive tract is unremarka ble. The cervical spine is normal. The visualized portions of the lungs are clear. IMPRESSION: 1. No acute intracranial process by noncontrast head CT. 2. No aneurysm. No intracranial stenosis or occlusion. 3. No stenosis of the cervical carotid or vertebral arteries. PQRS Compliance Statement - Stenosis calculations for CT, MR and conventional angiography are based upon measurement of the distal ICA diameter in accordance with the NASCET methodology. Electronically signed by: Bhargav Light MD (02/02/2021 11:34 AM) [id number][] Course & Med Decision Making: Course & Med Decision Making Pertinent Labs and Imaging studies reviewed. (See chart for details) Patient is a 50-year-old female who presented to the emergency department with sudden onset of vertigo that is worse with position changes and inability to walk straight. CT head and CT angio head were negative for any acute findings. CBC revealed a hemoglobin of 9.3, hematocrit of 28.2 otherwise unremarkable; CMP revealed no acute findings. HINTS exam was performed with active persistent vertigo. Exam negative for central pathology. Pt with no vertical nystagmus (horizontal nystagmus and lack of nystagmus consistent with peripheral vertigo), normal corrective saccade with head impulse test and no skew deviation. Patient's vital signs are stable throughout emergency department stay. She reported reduced dizziness after 10 mg of IV Reglan, 1 L normal saline, and 25 mg of IV Benadryl. Patient was then given 25 mg of p.o. meclizine. She reported feeling much better after meclizine and was able to walk with a steady gait. Prescription written for meclizine, and was sent electronically to [facility] as requested by patient. Patient encouraged to follow-up with primary care doctor in the next 1 to 2 days, return to the ER if symptoms worsen or fever develop. Patient verbalized an understanding of home care, medications, follow-up, and return to ED instructions and was in agreement with the plan of care. I performed neurologic exam with my FISH AND WILDLIFE TECHNICIAN. Berkley Disclaimer: Berkley Disclaimer: This electronic medical record was generated, in whole or in part, using a voice recognition dictation system. Departure Departure Impression: Primary Impression: Vertigo Additional Impression: BPPV (benign paroxysmal positional vertigo) Disposition: HOME / SELF CARE / HOMELESS Condition: STABLE Referrals: Bebe MOSHER MD (PCP) Patient Instructions: Benign Positional Vertigo Additional Instructions: Fill the prescription and use it as directed. Change positions slowly. Do not drive while you are experiencing dizziness. Follow-up with your primary care doctor in the next 1 to 2 days, return to the ER if symptoms worsen. Scripts Meclizine Hcl (MECLIZINE HCL) 25 Mg Tablet 1 TAB PO PRN TID PRN for DIZZINESS for 10 Days, #30 TAB 0 Refills Prov: CEASAR MALONEY APRN 02/02/21 Problem Qualifiers Additional Impression: BPPV (benign paroxysmal positional vertigo) Laterality: right Qualified Codes: H81.11 - Benign paroxysmal vertigo, right ear CEASAR MALONEY APRN February 02, 2021 10:50 SAWYER BORDEN DO February 02, 2021 18:34
[2021-02-02] MEDS: IOHEXOL 300 MG/ML 100ML VIAL. IV ONE (11:05)
--- NOTE | 2021-02-02 11:36 | RAD ---
EXAM: CT HEAD/BRAIN WO, CTA HEAD AND NECK W/WO CONTRAST DATE: 02/02/2021 10:26 AM INDICATION: dizziness TECHNIQUE: 5 mm axial tomographic images were obtained through the head before contrast. CTA angiogra m of the head and neck was obtained after IV bolus administration of 75 cc of Omnipaque 300. The imag es were sent to workstation and multiplanar reconstructions were obtained. Multiplanar reconstructio n images to include MIP and 3-D reconstruction images are submitted. One or more of the following dose reduction techniques were utilized: Automated exposure control (AEC ), Adjustment of mA and/or kV according to patient size, Use of iterative reconstruction technique rodas ch as ASiR, CT scan done according to ALARA and image gently/image wisely COMPARISON: None. FINDINGS: Noncontrast CT: The brain parenchyma is normal in attenuation. No intra- or extra-axial mass or fluid collection. No hyperdense intracranial hemorrhage. The ventricles are normal in size and configuration without midli ne shift. There is normal salas-white matter differentiation. The subarachnoid cisterns are patent. The visualized paranasal sinuses are well aerated. The mastoid air cells are clear. The visualized po rtions of the orbits are normal. No aggressive osseous lesion or fracture. CTA Head: The visualized distal internal carotid arteries, anterior and middle cerebral arteries are patent and normal caliber. The distal vertebral arteries, basilar artery, and posterior cerebral arteries are p atent and normal caliber. No aneurysm or arteriovenous malformation is seen. CTA Neck: Right carotid: The right common carotid artery is patent and normal caliber. The carotid bifurcation is normal. No stenosis of the right internal carotid artery per NASCET criteria. The right external c arotid artery is patent. Left carotid: The left common carotid artery is patent and normal caliber. The carotid bifurcation is normal. No stenosis of the left internal carotid artery per NASCET criteria. The left external carot id artery is patent. Right vertebral: The right vertebral artery is patent and normal caliber. Left vertebral: The left vertebral artery is patent and normal caliber. The visualized portions of the aortic arch are normal. The origins of the brachiocephalic and subclav josseline arteries are normal. No cervical lymphadenopathy. The thyroid gland is normal. The parotid and submandibular glands are no rmal. The visualized aerodigestive tract is unremarkable. The cervical spine is normal. The visualized portions of the lungs are clear. IMPRESSION: 1. No acute intracranial process by noncontrast head CT. 2. No aneurysm. No intracranial stenosis or occlusion. 3. No stenosis of the cervical carotid or vertebral arteries. PQRS Compliance Statement - Stenosis calculations for CT, MR and conventional angiography are based u ky measurement of the distal ICA diameter in accordance with the NASCET methodology. Electronically signed by: Bhargav Light MD (02/02/2021 11:34 AM) [id number]
[2021-02-02] MEDS: MECLIZINE HCL 12.5 MG TABLET. PO ONE (11:50)
[2021-02-02] MEDS ORDERED: MECL-75 PO ×2 (13:13→13:14)
[2021-02-02 13:46] VITALS: BP 135/78
== END 2021-02-02 14:12 | disposition home or self-care (01) ==
LOC: ER 09:22
DX: H81.11 Benign paroxysmal vertigo, right ear (principal); R09.81 Nasal congestion; R51.9 Headache, unspecified; E03.9 Hypothyroidism, unspecified
CPT/HCPCS: 36415; 70450; 70496; 70498; 80053; 84703; 85025; 96361; 96374; 96375; 99285; J1200; J2765; J7030; J8597; Q9967